=== PATIENT | female | born 1940 | race Two or more races ===

== ENCOUNTER 2021-09-28 15:15 | Inpatient (IN) | payer OTHER ==
[~2021-09-28] VITALS: Ht 162.6 cm; Wt 94.8 kg
[2021-09-28 17:00] VITALS: BP 126/77
[2021-09-28] MEDS ORDERED: ATOR10TA69 PO (17:07)
[2021-09-28] MEDS ORDERED: ACET-2708 PO (17:07)
[2021-09-28] MEDS ORDERED: ICOS0.5C PO (17:07)
[2021-09-28] MEDS ORDERED: METF-873 PO (17:07)
[2021-09-28] MEDS ORDERED: VALS160T28 PO (17:07)
[2021-09-28] MEDS ORDERED: CYAN500T9 PO (17:07)
[2021-09-28] MEDS ORDERED: MONT10TA21 PO (17:07)
[2021-09-28] MEDS ORDERED: CHOL100022 PO (17:07)
[2021-09-28] MEDS ORDERED: MECL-159 PO (17:07)
[2021-09-28] MEDS ORDERED: CLOP75TA33 PO (17:07)
[2021-09-28] MEDS ORDERED: CARV6.2548 PO (17:07)
[2021-09-28 18:00] VITALS: BP 133/77
[2021-09-28] MEDS ORDERED: DEXTROSE 50% WATER 50ML SYRINGE IV PRN (18:45)
[2021-09-28 20:00] VITALS: BP 132/73
[2021-09-28 20:50] LABS: BASOPHILS % 0.4 % (0.0-2.0); EOSINOPHILS % 2.2 % (0.0-5.0); HEMATOCRIT. 43.8 % (36.0-48.0); HEMOGLOBIN. 14.7 g/dL (12.0-16.0); MEAN CORPUSCULAR HEMOGLOBIN 30.7 pg (28.0-32.0); MEAN CORPUSCULAR VOLUME 91.3 fL (81.0-99.0); MONOCYTES % 7.4 % (2.0-8.0); PLATELET 161 x1000/uL (130-400); RED CELL DISTRIBUTION WIDTH 14.3 % (11.6-14.6)
[2021-09-28 20:56] LABS: CHLORIDE 108 mEq/L (98-107); INR 1.1; PARTIAL THROMBOPLASTIN TIME 28.1 sec (23.4-31.0); PROTHROMBIN TIME 11.4 sec (9.6-11.0)
[2021-09-28] MEDS: BLOOD SUGAR DIAGNOSTIC STRIP TEST SCH (21:48)
[2021-09-28] MEDS: INSULIN LISPRO 100 UNITS/ML SUBCUT SCH (21:55)
[2021-09-28 22:00] VITALS: BP 133/78
[2021-09-29] VITALS (12 sets, daily range): BP systolic 104–152; BP diastolic 49–94
[2021-09-29] MEDS ORDERED: MECLIZINE 25MG TABLET PO SCH (01:00)
[2021-09-29] MEDS: ATORVASTATIN CALCIUM 10MG TABLET PO SCH ×2 (01:30→22:07)
[2021-09-29] MEDS: BLOOD SUGAR DIAGNOSTIC STRIP TEST SCH ×4 (06:12→21:00)
[2021-09-29] MEDS: INSULIN LISPRO 100 UNITS/ML SUBCUT SCH ×4 (07:20→21:00)
[2021-09-29] MEDS: METFORMIN HCL 500MG TABLET PO SCH ×2 (10:01→17:58)
[2021-09-29] MEDS: LOSARTAN POTASSIUM 50 MG TABLET PO SCH (10:02)
[2021-09-29] MEDS: CARVEDILOL 6.25 MG TABLET PO SCH ×2 (10:02→17:58)
[2021-09-29] MEDS: CLOPIDOGREL 75MG TABLET PO SCH (10:03)
[2021-09-29] MEDS: ENOXAPARIN 40MG/0.4ML SYR SUBCUT SCH (10:03)
[2021-09-29] MEDS: MONTELUKAST SODIUM 10MG TABLET PO SCH (22:07)
[2021-09-30] VITALS (26 sets, daily range): BP systolic 113–174; BP diastolic 52–112
[2021-09-30] MEDS: BLOOD SUGAR DIAGNOSTIC STRIP TEST SCH ×5 (06:50→20:42)
[2021-09-30] MEDS: INSULIN LISPRO 100 UNITS/ML SUBCUT SCH ×5 (06:50→20:42)
[2021-09-30] MEDS: METFORMIN HCL 500MG TABLET PO SCH ×2 (07:20→18:25)
[2021-09-30] MEDS: CLOPIDOGREL 75MG TABLET PO SCH (08:40)
[2021-09-30] MEDS: LOSARTAN POTASSIUM 50 MG TABLET PO SCH (08:40)
[2021-09-30] MEDS: CARVEDILOL 6.25 MG TABLET PO SCH ×2 (08:40→16:52)
[2021-09-30] MEDS: ENOXAPARIN 40MG/0.4ML SYR SUBCUT SCH (08:40)
[2021-09-30 10:14] LABS: HEMATOCRIT 46.3 % (36.0-48.0); HEMOGLOBIN 15.7 g/dL (12.0-16.0); MEAN CORPUSCULAR HEMOGLOBIN 30.7 pg (28.0-32.0); MEAN CORPUSCULAR VOLUME 90.5 fL (81.0-99.0); PLATELET 174 x1000/uL (130-400); RED BLOOD CELL COUNT 5.12 mill/uL (4.2-5.4); RED CELL DISTRIBUTION WIDTH 14.1 % (11.6-14.6)
[2021-09-30 10:28] LABS: CHLORIDE 110 mEq/L (98-107)
[2021-09-30] MEDS ORDERED: IODIXANOL 320MG/ML 100 ML BOTTLE IV ONE ×2 (10:29→11:19)
[2021-09-30] MEDS ORDERED: LIDOCAINE HCL 1% 20ML VIAL (Pyxis) INJ ONE (10:30)
[2021-09-30] MEDS ORDERED: ATROPINE SULFATE 0.1MG/ML 10ML DISP.SYRIN ONE ×2 (11:12→11:13)
[2021-09-30] MEDS ORDERED: EPINEPHRINE 0.1MG/ML (1:10,000) 10ML SYR ONE (11:13)
[2021-09-30] MEDS ORDERED: ONDANSETRON HCL 4MG/2ML INJ ONE (11:13)
[2021-09-30] MEDS ORDERED: IODIXANOL 320MG/ML 200ML BOTTLE ONE (11:19)
[2021-09-30] MEDS ORDERED: FENTANYL CITRATE/PF 50MCG/ML 2ML VIAL ONE (11:35)
[2021-09-30] MEDS ORDERED: MIDAZOLAM HCL 2 MG/2 ML VIAL ONE (11:35)
[2021-09-30] MEDS ORDERED: ATROPINE SULFATE 1MG/10ML SYR IV PRN (11:45)
[2021-09-30] MEDS ORDERED: SODIUM CHLORIDE 0.45% 1,000 ML IV ONE (12:00)
[2021-09-30] MEDS ORDERED: MECLIZINE 25MG TABLET PO PRN (13:45)
[2021-09-30] MEDS ORDERED: IOHEXOL-350 100 ML BOTTLE ONE (16:12)
[2021-09-30] MEDS: ACETAMINOPHEN 325MG TABLET PO PRN ×2 (16:53→22:09)
[2021-09-30] MEDS: MONTELUKAST SODIUM 10MG TABLET PO SCH (20:42)
[2021-09-30] MEDS: ATORVASTATIN CALCIUM 10MG TABLET PO SCH (20:42)
[2021-10-01] VITALS (36 sets, daily range): BP systolic 100–152; BP diastolic 47–117
[2021-10-01 06:20] LABS: CHLORIDE 110 mEq/L (98-107)
[2021-10-01 06:23] LABS: BASOPHILS % 0.2 % (0.0-2.0); EOSINOPHILS % 2.9 % (0.0-5.0); HEMATOCRIT. 42.9 % (36.0-48.0); HEMOGLOBIN. 14.3 g/dL (12.0-16.0); MEAN CORPUSCULAR HEMOGLOBIN 30.8 pg (28.0-32.0); MEAN CORPUSCULAR VOLUME 92.3 fL (81.0-99.0); MEAN PLATELET VOLUME 7.9 fl (7.4-10.4); NEUTROPHILS % 61.9 % (40.0-76.0); PLATELET 144 x1000/uL (130-400); RED BLOOD CELL COUNT 4.64 mill/uL (4.2-5.4); RED CELL DISTRIBUTION WIDTH 14.5 % (11.6-14.6)
[2021-10-01] MEDS: BLOOD SUGAR DIAGNOSTIC STRIP TEST SCH ×4 (07:50→21:48)
[2021-10-01] MEDS: INSULIN LISPRO 100 UNITS/ML SUBCUT SCH ×5 (07:54→21:00)
[2021-10-01] MEDS: LOSARTAN POTASSIUM 50 MG TABLET PO SCH (10:12)
[2021-10-01] MEDS: ENOXAPARIN 40MG/0.4ML SYR SUBCUT SCH (10:12)
[2021-10-01] MEDS: CARVEDILOL 6.25 MG TABLET PO SCH ×2 (10:12→19:03)
[2021-10-01] MEDS: METFORMIN HCL 500MG TABLET PO SCH ×2 (10:12→19:02)
[2021-10-01] MEDS: CLOPIDOGREL 75MG TABLET PO SCH (10:13)
[2021-10-01] MEDS: ATORVASTATIN CALCIUM 10MG TABLET PO SCH (21:28)
[2021-10-01] MEDS: MONTELUKAST SODIUM 10MG TABLET PO SCH (21:28)
[2021-10-02] VITALS (38 sets, daily range): BP systolic 40–141; BP diastolic 14–105
[2021-10-02] MEDS: BLOOD SUGAR DIAGNOSTIC STRIP TEST SCH ×4 (07:50→20:57)
[2021-10-02] MEDS: INSULIN LISPRO 100 UNITS/ML SUBCUT SCH ×3 (08:20→20:57)
[2021-10-02] MEDS: CARVEDILOL 6.25 MG TABLET PO SCH ×2 (09:35→17:00)
[2021-10-02] MEDS: LOSARTAN POTASSIUM 50 MG TABLET PO SCH (09:35)
[2021-10-02] MEDS: ENOXAPARIN 40MG/0.4ML SYR SUBCUT SCH (09:35)
[2021-10-02] MEDS: CLOPIDOGREL 75MG TABLET PO SCH (09:35)
[2021-10-02] MEDS: METFORMIN HCL 500MG TABLET PO SCH (09:39)
[2021-10-02] MEDS ORDERED: METOPROLOL TARTRATE 5MG/5ML VIAL IV SCH (11:00)
[2021-10-02] MEDS ORDERED: NITROGLYCERIN SPRAY/4.9GM CAN TL SCH (12:30)
[2021-10-02] MEDS ORDERED: IOHEXOL-350 100 ML BOTTLE ONE (13:23)
[2021-10-02] MEDS: ATORVASTATIN CALCIUM 10MG TABLET PO SCH (21:00)
[2021-10-02] MEDS: MONTELUKAST SODIUM 10MG TABLET PO SCH (21:00)
[2021-10-03] VITALS (10 sets, daily range): BP systolic 121–174; BP diastolic 35–105
[2021-10-03] MEDS: BLOOD SUGAR DIAGNOSTIC STRIP TEST SCH ×3 (06:32→17:07)
[2021-10-03] MEDS: INSULIN LISPRO 100 UNITS/ML SUBCUT SCH ×3 (07:20→17:20)
[2021-10-03] MEDS: CARVEDILOL 6.25 MG TABLET PO SCH ×2 (09:46→17:00)
[2021-10-03] MEDS: ENOXAPARIN 40MG/0.4ML SYR SUBCUT SCH (09:46)
[2021-10-03] MEDS: METFORMIN HCL 500MG TABLET PO SCH ×2 (09:47→17:20)
[2021-10-03] MEDS: CLOPIDOGREL 75MG TABLET PO SCH (09:47)
[2021-10-03] MEDS: LOSARTAN POTASSIUM 50 MG TABLET PO SCH (09:47)
== END 2021-10-03 20:10 | disposition home or self-care (01) | DRG 287 ==
LOC: EDSTATUS 15:55 → 3WST 16:01 → CVICU 09-30 11:35 → 3WST 10-02 17:47
PROVIDERS: ADMIT Internal Medicine Clinical Cardiac Electrophysiology; ATTEND Internal Medicine Clinical Cardiac Electrophysiology
PROC: 4A023N7 Measurement of Cardiac Sampling and Pressure, Left Heart, Percutaneous Approach (ICD-10-PCS; principal; 2021-09-30)
PROC: B2111ZZ Fluoroscopy of Multiple Coronary Arteries using Low Osmolar Contrast (ICD-10-PCS; 2021-09-30)
PROC: B2131ZZ Fluoroscopy of Multiple Coronary Artery Bypass Grafts using Low Osmolar Contrast (ICD-10-PCS; 2021-09-30)
PROC: B3101ZZ Fluoroscopy of Thoracic Aorta using Low Osmolar Contrast (ICD-10-PCS; 2021-09-30)
PROC: B2181ZZ Fluoroscopy of Left Internal Mammary Bypass Graft using Low Osmolar Contrast (ICD-10-PCS; 2021-09-30)
DX: I25.110 Atherosclerotic heart disease of native coronary artery with unstable angina pectoris (principal); I48.21 Permanent atrial fibrillation; I10 Essential (primary) hypertension; I25.82 Chronic total occlusion of coronary artery; E11.9 Type 2 diabetes mellitus without complications; E78.5 Hyperlipidemia, unspecified; F41.9 Anxiety disorder, unspecified; Z20.822 Contact with and (suspected) exposure to COVID-19; E66.01 Morbid (severe) obesity due to excess calories; I49.5 Sick sinus syndrome; I71.9 Aortic aneurysm of unspecified site, without rupture; Z68.35 Body mass index [BMI] 35.0-35.9, adult; Z80.8 Family history of malignant neoplasm of other organs or systems; Z79.82 Long term (current) use of aspirin; Z79.899 Other long term (current) drug therapy; I71.2 Thoracic aortic aneurysm, without rupture
CPT/HCPCS: 36415; 71045; 71275; 75571; 80048; 80053; 82962; 84484; 85025; 85027; 87426; 93005; 93454; 93567; 99285; C1769; C1887; C1893; J0461; J1644; J1650; J1815; J2250; J2405; J3010; J3490; J7040; J8597; Q9967

== ENCOUNTER 2022-03-11 14:56 | Inpatient (IN) | payer OTHER ==
[~2022-03-11] VITALS: Ht 160 cm; Wt 90.7 kg
[~2022-03-11 14:56] MED LIST: ACET-2708 PO; ATOR10TA69 PO; CARV6.2548 PO; CHOL100022 PO; CLOP75TA33 PO; CYAN500T9 PO; ICOS0.5C PO; MECL-159 PO; MONT10TA21 PO; VALS160T28 PO
[2022-03-11 17:16] LABS: BASOPHILS % 0.5 % (0.0-2.0); CHLORIDE 110 mEq/L (98-107); EOSINOPHILS % 3.1 % (0.0-5.0); HEMATOCRIT. 43.7 % (36.0-48.0); HEMOGLOBIN. 14.6 g/dL (12.0-16.0); LYMPHOCYTES % 29.6 % (20.0-50.0); MEAN CORPUSCULAR HEMOGLOBIN 30.9 pg (28.0-32.0); MEAN CORPUSCULAR VOLUME 92.1 fL (81.0-99.0); MEAN PLATELET VOLUME 8.2 fl (7.4-10.4); MONOCYTES % 6.5 % (2.0-8.0); NEUTROPHILS % 60.3 % (40.0-76.0); PLATELET 212 x1000/uL (130-400); RED BLOOD CELL COUNT 4.75 mill/uL (4.2-5.4); RED CELL DISTRIBUTION WIDTH 14.8 % (11.6-14.6)
[2022-03-11] MEDS ORDERED: IPRATROPIUM BROMIDE (0.02%) 0.5MG/2.5ML NEB HHN STA (19:23)
[2022-03-11] MEDS ORDERED: ALBUTEROL (0.083%) 2.5MG/3ML NEB HHN STA (19:23)
[2022-03-11] MEDS ORDERED: PREDNISONE 20MG TABLET PO STA (19:23)
[2022-03-11] MEDS ORDERED: ASPIRIN 81MG TABLET PO ONE (19:30)
[2022-03-11] MEDS ORDERED: ALBUTEROL (0.083%) 2.5MG/3ML NEB ONE (21:13)
[2022-03-11] MEDS ORDERED: IPRATROPIUM BROMIDE (0.02%) 0.5MG/2.5ML NEB ONE (21:14)
[2022-03-12] MEDS ORDERED: HYDROXYZINE 25MG TABLET PO PRN (00:15)
[2022-03-12] MEDS ORDERED: CLONIDINE 0.1MG TABLET PO NR (00:15)
[2022-03-12] MEDS ORDERED: MAGNESIUM/ALUMINUM HYDROXIDE/SIMETHICONE 30ML UDC PO PRN (02:30)
[2022-03-12] MEDS ORDERED: ACETAMINOPHEN 325MG TABLET PO PRN ×2 (02:30)
[2022-03-12] MEDS ORDERED: ONDANSETRON HCL 4MG/2ML INJ IV PRN (02:30)
[2022-03-12] MEDS ORDERED: IPRATROPIUM/ALBUTEROL 0.5-3(2.5)MG/3ML NEB HHN PRN (02:30)
[2022-03-12] MEDS ORDERED: DOCUSATE SODIUM 250MG CAPSULE PO PRN (02:45)
[2022-03-12 06:37] LABS: CLARITY URINE CLOUDY (CLEAR); COLOR URINE YELLOW (YELLOW); KETONES URINE TRACE (NEGATIVE); LEUKOCYTE ESTERASE URINE TRACE (NEGATIVE); NITRITE URINE POSITIVE (NEGATIVE); OCCULT BLOOD URINE NEGATIVE (NEGATIVE); PH URINE 5.5 (4.5-8.0); PROTEIN URINE 3+ (NEGATIVE); SPECIFIC GRAVITY URINE 1.019 (1.005-1.030); UROBILINOGEN URINE 0.2 E.U./dL (0.2-1.0)
[2022-03-12 08:00] VITALS: BP 137/76
[2022-03-12] MEDS ORDERED: DEXTROSE 50% WATER 50ML SYRINGE IV PRN (08:15)
[2022-03-12] MEDS ORDERED: OXYB5TAB17 PO (08:24)
[2022-03-12] MEDS ORDERED: METF-416 PO (08:24)
[2022-03-12] MEDS ORDERED: DOCU250C69 PO (08:24)
[2022-03-12] MEDS ORDERED: ENOXAPARIN 40MG/0.4ML SYR SUBCUT SCH (09:00)
[2022-03-12] MEDS: CLOPIDOGREL 75MG TABLET PO SCH (09:12)
[2022-03-12] MEDS: OXYBUTYNIN CHLORIDE 5MG TABLET PO SCH (09:12)
[2022-03-12] MEDS: MECLIZINE 25MG TABLET PO SCH (09:13)
[2022-03-12] MEDS: CARVEDILOL 12.5MG TABLET PO SCH ×2 (09:13→20:43)
[2022-03-12 12:00] VITALS: BP 142/83
[2022-03-12] MEDS: BLOOD SUGAR DIAGNOSTIC STRIP TEST SCH ×3 (12:20→20:52)
[2022-03-12] MEDS: INSULIN LISPRO 100 UNITS/ML SUBCUT SCH ×3 (12:50→21:01)
[2022-03-12 16:00] VITALS: BP 140/68
[2022-03-12 16:10] LABS: CREATINE KINASE 66 IU/L (26-192); CREATINE KINASE MB FRACTION < 1.0 ng/mL (0.5-3.6)
[2022-03-12 16:27] LABS: T4 FREE 0.78 ng/dL (0.76-1.46)
[2022-03-12] MEDS: CEFTRIAXONE 1 G PREMIX 50 ML IV SCH (17:57)
[2022-03-12 18:18] VITALS: BP 137/76
[2022-03-12 20:00] VITALS: BP 104/51
[2022-03-12] MEDS: ATORVASTATIN CALCIUM 40MG TABLET PO SCH (20:52)
[2022-03-12] MEDS: MONTELUKAST SODIUM 10MG TABLET PO SCH (20:52)
[2022-03-12] MEDS: ENOXAPARIN 30MG/0.3ML SYR SUBCUT SCH (20:52)
[2022-03-12] MEDS ORDERED: THROAT LOZENGES-BENZOCAINE/MENTH/CETYLPYRD CL LOZENGES MM PRN (23:00)
[2022-03-13] VITALS (7 sets, daily range): BP systolic 106–142; BP diastolic 60–85
[2022-03-13 01:29] LABS: CREATINE KINASE MB FRACTION 1.3 ng/mL (0.5-3.6)
[2022-03-13] MEDS: NITROGLYCERIN 0.4MG TABLET SL SL PRN ×2 (03:00→16:36)
[2022-03-13] MEDS: BLOOD SUGAR DIAGNOSTIC STRIP TEST SCH ×3 (06:36→21:51)
[2022-03-13 07:03] LABS: BASOPHILS % 0.7 % (0.0-2.0); EOSINOPHILS % 2.5 % (0.0-5.0); HEMATOCRIT. 41.8 % (36.0-48.0); HEMOGLOBIN. 14.1 g/dL (12.0-16.0); LYMPHOCYTES % 32.5 % (20.0-50.0); MEAN CORPUSCULAR VOLUME 91.8 fL (81.0-99.0); MEAN PLATELET VOLUME 8.2 fl (7.4-10.4); MONOCYTES % 5.6 % (2.0-8.0); NEUTROPHILS % 58.7 % (40.0-76.0); PLATELET 192 x1000/uL (130-400); RED BLOOD CELL COUNT 4.55 mill/uL (4.2-5.4); RED CELL DISTRIBUTION WIDTH 14.8 % (11.6-14.6)
[2022-03-13 07:22] LABS: CHLORIDE 109 mEq/L (98-107)
[2022-03-13 07:37] LABS: CREATINE KINASE 78 IU/L (26-192); CREATINE KINASE MB FRACTION 1.5 ng/mL (0.5-3.6); HDL CHOLESTEROL 38 mg/dL (40-59); LDL CHOLESTEROL 122 mg/dL (5-100)
[2022-03-13] MEDS: INSULIN LISPRO 100 UNITS/ML SUBCUT SCH ×3 (07:39→21:00)
[2022-03-13] MEDS: HYDROCODONE/ACETAMINOPHEN 5/325MG TABLET PO PRN (08:04)
[2022-03-13] MEDS: CLOPIDOGREL 75MG TABLET PO SCH (08:33)
[2022-03-13] MEDS: ENOXAPARIN 30MG/0.3ML SYR SUBCUT SCH ×2 (08:33→21:52)
[2022-03-13] MEDS: OXYBUTYNIN CHLORIDE 5MG TABLET PO SCH (08:33)
[2022-03-13] MEDS: CARVEDILOL 12.5MG TABLET PO SCH ×2 (08:33→21:53)
[2022-03-13] MEDS ORDERED: NITROGLYCERIN SPRAY/4.9GM CAN TL SCH (12:15)
[2022-03-13] MEDS ORDERED: IOHEXOL-350 100 ML BOTTLE ONE (12:27)
[2022-03-13] MEDS: CEFTRIAXONE 1 G PREMIX 50 ML IV SCH (15:58)
[2022-03-13] MEDS: MONTELUKAST SODIUM 10MG TABLET PO SCH (21:52)
[2022-03-13] MEDS: ATORVASTATIN CALCIUM 40MG TABLET PO SCH (21:52)
[2022-03-14 03:59] VITALS: BP 132/73
[2022-03-14] MEDS: BLOOD SUGAR DIAGNOSTIC STRIP TEST SCH ×4 (05:59→21:00)
[2022-03-14 07:16] LABS: CHLORIDE 107 mEq/L (98-107)
[2022-03-14 07:22] LABS: BASOPHILS % 0.4 % (0.0-2.0); EOSINOPHILS % 5.7 % (0.0-5.0); HEMATOCRIT. 41.5 % (36.0-48.0); LYMPHOCYTES % 30.3 % (20.0-50.0); MEAN CORPUSCULAR VOLUME 91.6 fL (81.0-99.0); MEAN PLATELET VOLUME 8.2 fl (7.4-10.4); MONOCYTES % 6.7 % (2.0-8.0); NEUTROPHILS % 56.9 % (40.0-76.0); PLATELET 197 x1000/uL (130-400); RED BLOOD CELL COUNT 4.53 mill/uL (4.2-5.4); RED CELL DISTRIBUTION WIDTH 14.7 % (11.6-14.6)
[2022-03-14] MEDS: INSULIN LISPRO 100 UNITS/ML SUBCUT SCH ×4 (07:50→21:00)
[2022-03-14] MEDS: HYDROCODONE/ACETAMINOPHEN 5/325MG TABLET PO PRN (07:54)
[2022-03-14 08:00] VITALS: BP 146/78
[2022-03-14] MEDS: ENOXAPARIN 30MG/0.3ML SYR SUBCUT SCH ×2 (08:24→21:00)
[2022-03-14] MEDS: MECLIZINE 25MG TABLET PO SCH ×2 (08:24→09:00)
[2022-03-14] MEDS: OXYBUTYNIN CHLORIDE 5MG TABLET PO SCH (08:24)
[2022-03-14] MEDS: CARVEDILOL 12.5MG TABLET PO SCH ×2 (08:25→23:09)
[2022-03-14] MEDS: CLOPIDOGREL 75MG TABLET PO SCH (08:25)
[2022-03-14] MEDS: NITROGLYCERIN 0.4MG TABLET SL SL PRN (08:31)
[2022-03-14] MEDS ORDERED: IODIXANOL 320MG/ML 100 ML BOTTLE IV ONE ×2 (14:05→15:04)
[2022-03-14] MEDS ORDERED: HEPARIN 1000 UNITS/ML 10ML ONE (14:05)
[2022-03-14] MEDS ORDERED: FENTANYL CITRATE/PF 50MCG/ML 2ML VIAL ONE (14:06)
[2022-03-14] MEDS ORDERED: MIDAZOLAM HCL 2 MG/2 ML VIAL ONE (14:06)
[2022-03-14] MEDS ORDERED: DIPHENHYDRAMINE 50MG/ML VIAL ONE (14:09)
[2022-03-14] MEDS ORDERED: LIDOCAINE HCL/PF 1% 10 MG/ML 5ML VIAL ONE (14:18)
[2022-03-14] MEDS ORDERED: CEFTRIAXONE 1,000 MG in DEXTROSE 5% WATER 50 ML IV SCH ×2 (16:00→20:00)
[2022-03-14] MEDS ORDERED: SODIUM CHLORIDE 0.45% 250 ML IV ONE (16:30)
[2022-03-14] MEDS ORDERED: NALOXONE HCL 0.4MG/ML VIAL IV PRN (18:30)
[2022-03-14] MEDS ORDERED: NITR-87 MT (18:58)
[2022-03-14] MEDS ORDERED: NITR0.4T49 SL (18:58)
[2022-03-14] MEDS ORDERED: COR12 PO (18:58)
[2022-03-14 21:28] VITALS: BP 149/67
[2022-03-14] MEDS: ATORVASTATIN CALCIUM 40MG TABLET PO SCH (23:09)
[2022-03-14] MEDS: MONTELUKAST SODIUM 10MG TABLET PO SCH (23:10)
[2022-03-15] VITALS: BP 154/76
[2022-03-15 03:37] VITALS: BP 149/76
[2022-03-15] MEDS: BLOOD SUGAR DIAGNOSTIC STRIP TEST SCH (06:16)
[2022-03-15] MEDS: INSULIN LISPRO 100 UNITS/ML SUBCUT SCH (07:50)
[2022-03-15 08:00] VITALS: BP 136/76
[2022-03-15] MEDS: HYDROCODONE/ACETAMINOPHEN 5/325MG TABLET PO PRN (08:09)
[2022-03-15] MEDS ORDERED: NITROFURANTOIN 100MG M/M CAPSULE PO SCH (09:00)
[2022-03-15] MEDS: OXYBUTYNIN CHLORIDE 5MG TABLET PO SCH (09:00)
[2022-03-15] MEDS: CLOPIDOGREL 75MG TABLET PO SCH (09:00)
[2022-03-15] MEDS: MECLIZINE 25MG TABLET PO SCH (09:00)
[2022-03-15] MEDS: ENOXAPARIN 30MG/0.3ML SYR SUBCUT SCH (09:00)
[2022-03-15] MEDS: CARVEDILOL 12.5MG TABLET PO SCH (09:00)
[2022-03-15 09:18] LABS: BASOPHILS % 0.5 % (0.0-2.0); EOSINOPHILS % 3.8 % (0.0-5.0); HEMATOCRIT. 44.8 % (36.0-48.0); HEMOGLOBIN. 15.1 g/dL (12.0-16.0); LYMPHOCYTES % 17.6 % (20.0-50.0); MEAN CORPUSCULAR HEMOGLOBIN 30.8 pg (28.0-32.0); MEAN CORPUSCULAR VOLUME 91.5 fL (81.0-99.0); MEAN PLATELET VOLUME 8.1 fl (7.4-10.4); MONOCYTES % 6.9 % (2.0-8.0); NEUTROPHILS % 71.2 % (40.0-76.0); PLATELET 209 x1000/uL (130-400); RED CELL DISTRIBUTION WIDTH 14.8 % (11.6-14.6)
[2022-03-15 09:23] LABS: CHLORIDE 108 mEq/L (98-107)
[2022-03-15 12:00] VITALS: BP 132/77
[2022-03-15] MEDS ORDERED: AMLODIPINE 5MG TABLET PO SCH (12:15)
[2022-03-15 16:00] VITALS: BP 129/81
[2022-03-15 16:46] VITALS: BP 129/81
== END 2022-03-15 19:40 | disposition home or self-care (01) | DRG 287 ==
LOC: ER 14:56 → MICUSO 22:20 → EDBEDREQTM 22:24 → EDBEDREQ 22:24 → 6WST 03-12 07:59
PROVIDERS: ADMIT Internal Medicine; ATTEND Internal Medicine
PROC: 4A023N7 Measurement of Cardiac Sampling and Pressure, Left Heart, Percutaneous Approach (ICD-10-PCS; principal; 2022-03-14)
PROC: B211YZZ Fluoroscopy of Multiple Coronary Arteries using Other Contrast (ICD-10-PCS; 2022-03-14)
PROC: B41FYZZ Fluoroscopy of Right Lower Extremity Arteries using Other Contrast (ICD-10-PCS; 2022-03-14)
PROC: B218YZZ Fluoroscopy of Left Internal Mammary Bypass Graft using Other Contrast (ICD-10-PCS; 2022-03-14)
PROC: B213YZZ Fluoroscopy of Multiple Coronary Artery Bypass Grafts using Other Contrast (ICD-10-PCS; 2022-03-14)
DX: I25.10 Atherosclerotic heart disease of native coronary artery without angina pectoris (principal); I48.21 Permanent atrial fibrillation; I50.22 Chronic systolic (congestive) heart failure; N39.0 Urinary tract infection, site not specified; I11.0 Hypertensive heart disease with heart failure; I25.5 Ischemic cardiomyopathy; E78.5 Hyperlipidemia, unspecified; G47.33 Obstructive sleep apnea (adult) (pediatric); R29.6 Repeated falls; J44.9 Chronic obstructive pulmonary disease, unspecified; I44.7 Left bundle-branch block, unspecified; E11.51 Type 2 diabetes mellitus with diabetic peripheral angiopathy without gangrene; E66.9 Obesity, unspecified; Z95.0 Presence of cardiac pacemaker; Z79.84 Long term (current) use of oral hypoglycemic drugs; Z68.35 Body mass index [BMI] 35.0-35.9, adult; Z95.1 Presence of aortocoronary bypass graft; Z90.710 Acquired absence of both cervix and uterus; Z79.899 Other long term (current) drug therapy; Z79.02 Long term (current) use of antithrombotics/antiplatelets; Z80.0 Family history of malignant neoplasm of digestive organs; Z91.81 History of falling
CPT/HCPCS: 36415; 71045; 75571; 80048; 80053; 80061; 81003; 82550; 82553; 82962; 83036; 83880; 84439; 84443; 84484; 85025; 85379; 87077; 87186; 93005; 93306; 93459; 93970; 94640; 99285; C1760; C1769; C1887; C1893; C1894; J0696; J1200; J1644; J1650; J1815; J2250; J3010; J3490; J7060; J7512; J8597; Q9967